=== PATIENT | male | born 1995 | race African-American/Black ===

== ENCOUNTER 2016-12-08 09:00 | Emergency (ER) | payer MEDICAID, OTHER ==
[~2016-12-08] VITALS: Ht 175.3 cm; Wt 56.7 kg
[2016-12-08 09:15] VITALS: BP 133/87
[2016-12-08] MEDS ORDERED: Ketorolac 60mg Inj IM ONE (09:30)
[2016-12-08] MEDS ORDERED: IBUPROFEN600 MG ORAL (10:01)
[2016-12-08 10:25] VITALS: BP 133/87
--- NOTE | 2016-12-08 16:21 | Diagnostic Imaging Report ---
Indication: Left shoulder injury and pain Technique: 2 views of the left shoulder Comparison: None Findings: There is anterior dislocation of the left humeral head. No definite underlying fracture deformity demonstrated. Impression: Positive for left shoulder dislocation Electronic medical record indicates this was recognized by the emergency room physician
--- NOTE | 2016-12-08 17:02 | Emergency Room Report ---
History of Present Illness General Chief Complaint: Upper Extremity Injury Source: Patient, Caregiver Present Illness HPI Is a 21-year-old male presented after increased left-sided shoulder pain. Patient reported having a recent fall. As he stated he had prior history of shoulder dislocation. Patient stated this had dislocated at the time previously. Patient's have increased pain with movement. The patient denied any fever. He reported having difficulty moving his arm. He denied any numbness or weakness. He denies any headache or neck pain. Allergies: Coded Allergies: No Known Allergies (Unverified , 12/08/16) Patient History Past Medical History: see triage record Reviewed Nursing Documentation: PMH: Agreed, PSxH: Agreed Nursing Documentation-PMH Hx Cardiac Problems: No - PREMEE / CHRONIC LUNG DISEASE Review of Systems All Other Systems: negative except mentioned in HPI Physical Exam Vital Signs Date Time Temp Pulse Resp B/P (MAP) Pulse Ox O2 Delivery O2 Flow Rate FiO2 12/08/16 09:15 98.4 70 18 133/87 99 Room Air General Appearance: well appearing, no apparent distress, alert, GCS 15 Head: normocephalic, atraumatic ENT: hearing grossly normal, normal voice Neck: full range of motion, supple Respiratory: no respiratory distress, speaking full sentences Cardiovascular #1: normal inspection, regular rate, rhythm Gastrointestinal: normal inspection, non tender, soft Musculoskeletal: no calf tenderness, decreased range of mation - held in abduction Neurologic: normal inspection, alert, oriented x3, responsive, normal gait Psychiatric: mood/affect normal Skin: no rash Medical Decision Making Diagnostic Impression: Primary Impression: Shoulder dislocation, recurrent ER Course Patient presented for shoulder pain. Differential diagnoses included was not limited to fracture, dislocation, a.c. separation, septic joint. X-ray the shoulder 2 views interpreted by me showed the left shoulder anterior dislocation. The patient shoulder was reduced with Richardson technique. The patient is advised to follow up with primary care doctor in 1-2 days. Patient is advised to return if any worsening condition or if any changes in status that are concerning.The patient given prescription for ibuprofen. He is placed in a sling. Last Vital Signs Date Time Temp Pulse Resp B/P (MAP) Pulse Ox O2 Delivery O2 Flow Rate FiO2 12/08/16 10:25 98.4 76 19 133/87 100 Room Air Status: improved Disposition: HOME, SELF-CARE Condition: Stable Scripts Ibuprofen* (MOTRIN*) 600 Mg Tablet 600 MG ORAL Q8H Y for For Pain, #30 TAB 0 Refills Prov: Keith Bone 12/08/16 Departure Forms: Return to School Return to School On: Dec 08, 2016 School Release Restrictions: No Sports or PE Other School Release Restrictions: may not raise left arm above shoulder Patient Instructions: Shoulder Dislocation Keith Bone Dec 08, 2016 17:02
== END 2016-12-08 10:25 | disposition home or self-care (01) ==
LOC: EMR 09:48
DX: M24.412 Recurrent dislocation, left shoulder (principal)
CPT/HCPCS: 96372; 99284

== ENCOUNTER 2018-04-12 08:14 | Emergency (ER) | payer OTHER ==
[~2018-04-12] VITALS: Ht 175.3 cm; Wt 59.0 kg
[~2018-04-12 08:14] MED LIST: IBUPROFEN600 MG ORAL
[2018-04-12] MEDS ORDERED: NKM (08:20)
[2018-04-12 08:23] VITALS: BP 139/88
--- NOTE | 2018-04-12 08:25 | NUR ---
ED Nurse Note: patient walked into ED from home c/o sore throat that has been there for almost a week per patient. patient denies any other symptom.
[2018-04-12] MEDS ORDERED: IBUPROFEN600 MG ORAL (08:55)
[2018-04-12 09:02] VITALS: BP 139/88
--- NOTE | 2018-04-12 09:03 | NUR ---
ED Nurse Note: Pt is cleared for discharge per ERMD. Discharge instrcution/paper/ prescription given and explained to the patient, patient verbalized understanding. pt is alert and oriented x4, ambulated out of ED steady gait with all belongigns. pt is stable for DC. VSS. pt ID band removed.
--- NOTE | 2018-04-12 09:05 | Emergency Room Report ---
History of Present Illness General Chief Complaint: Sore Throat Source: Patient Present Illness HPI 22-year-old male presents ED for evaluation. Complaining of sore throat 1 week. Notes runny nose. Denies cough. Denies fevers or chills. Denies earache. Denies sick contacts or recent travel. No other aggravating relieving factors. Denies any other associated symptoms Allergies: Coded Allergies: No Known Allergies (Unverified , 12/08/16) Patient History Past Medical History: none Past Surgical History: none Pertinent Family History: none Social History: Denies: smoking, alcohol use, drug use Immunizations: UTD Reviewed Nursing Documentation: PMH: Agreed; PSxH: Agreed Nursing Documentation-PMH Past Medical History: No Stated History Hx Cardiac Problems: No Review of Systems All Other Systems: negative except mentioned in HPI Physical Exam Vital Signs Date Time Temp Pulse Resp B/P (MAP) Pulse Ox O2 Delivery O2 Flow Rate FiO2 04/12/18 08:16 98.4 78 17 139/88 98 Room Air Sp02 EP Interpretation: reviewed, normal General Appearance: no apparent distress, alert, GCS 15, non-toxic Head: normocephalic, atraumatic Eyes: bilateral eye normal inspection, bilateral eye PERRL ENT: hearing grossly normal, normal pharynx, no angioedema, normal voice Neck: full range of motion, supple/symm/no masses Respiratory: chest non-tender, lungs clear, normal breath sounds, speaking full sentences Cardiovascular #1: regular rate, rhythm, no edema Cardiovascular #2: 2+ carotid (R), 2+ carotid (L), 2+ radial (R), 2+ radial (L) , 2+ dorsalis pedis (R), 2+ dorsalis pedis (L) Gastrointestinal: normal bowel sounds, non tender, soft, non-distended, no guarding, no rebound Rectal: deferred Genitourinary: normal inspection, no CVA tenderness Musculoskeletal: back normal, gait/station normal, normal range of motion, non- tender Neurologic: alert, oriented x3, responsive, motor strength/tone normal, sensory intact, speech normal Psychiatric: judgement/insight normal, memory normal, mood/affect normal, no suicidal/homicidal ideation Reflexes: 3+ bicep (R), 3+ bicep (L), 3+ tricep (R), 3+ tricep (L), 3+ knee (R) , 3+ knee (L) Skin: normal color, no rash, warm/dry, well hydrated Lymphatic: no adenopathy Medical Decision Making Diagnostic Impression: Primary Impression: Viral pharyngitis ER Course Hospital Course 22-year-old male presents to ED complaining of runny nose with sore throat Differential diagnoses include: URI, pharyngitis, otitis media, asthma Clinical course Patient placed on stretcher. After initial history, physical exam reveals a male in no acute distress. Bilateral TM unremarkable. minimal pharyngeal erythema. No tonsillar exudates. No lymphadenopathy. lungs clear. abdomen soft. Clinical findings consistent with viral pharyngitis. Reassurance given. Course is self-limited. Treatment is supportive Safe for discharge close outpatient follow-up. Patient does not have a PMD. We 'll provide referrals Diagnosis - viral pharyngitis Stable and discharged home with Rx Motrin. Instructed to followup with PMD. Return to ED if symptoms recur or worsen Last Vital Signs Date Time Temp Pulse Resp B/P (MAP) Pulse Ox O2 Delivery O2 Flow Rate FiO2 04/12/18 08:23 98.4 78 17 139/88 98 Room Air Status: improved Disposition: HOME, SELF-CARE Condition: Stable Scripts Ibuprofen* (MOTRIN*) 600 Mg Tablet 600 MG ORAL Q8H PRN for For Pain, #30 TAB 0 Refills Prov: Dylan Alex MD 04/12/18 Referrals: Cez[facility] Jimenez [facility] Patient Instructions: Pharyngitis, [id number] Dylan Alex MD Apr 12, 2018 09:05
== END 2018-04-12 09:00 | disposition home or self-care (01) ==
LOC: EMR 08:50
DX: J02.9 Acute pharyngitis, unspecified (principal)
CPT/HCPCS: 99282